=== PATIENT | female | born 1960 | race Caucasian/White ===

== ENCOUNTER 2022-11-02 11:37 | Emergency (ER) | payer BC, SELFPAY ==
[2022-11-02 11:46] VITALS: BP 138/78; PULSE 83; RESP 16; TEMP 36.6; O2SAT 98
--- NOTE | 2022-11-02 12:12 | ED.GENADULT ---
HPI - General Adult General Chief complaint: Neck Pain/Injury Stated complaint: Sore Throat/Neck Pain Time Seen by Provider: 11/02/22 12:12 Source: patient Mode of arrival: ambulatory Limitations: no limitations History of Present Illness HPI narrative: 62-year-old female presented for complaint of bilateral neck pain and sore throat for about one week. States she might have post nasal drainage, but denies sinus pressure/congestion, headache or cough. Took one Singulair. Endorses she had been sitting for about 2 days looking down at her phone. Denies arm numbness, tingling or weakness. denies injury or fall. Pain worse when turning head side to side. Related Data Home Medications Medication Instructions Recorded Confirmed No Home Medications 11/02/22 11/02/22 Allergies Allergy/AdvReac Type Severity Reaction Status Date / Time No Known Allergies Allergy Verified 11/02/22 12:10 Review of Systems Review of Systems: CONSTITUTIONAL: Denies body aches, fever, chills EYES: Denies visual changes CARDIOVASCULAR: Denies chest pain, palpitations, or edema. RESPIRATORY: Denies cough or dyspnea. GASTROINTESTINAL: Denies abdominal pain, nausea, vomiting, or diarrhea. SKIN: Denies rash, itching, or wounds. MUSCULOSKELETAL: reports neck pain NEUROLOGIC: Denies headache, numbness, tingling, or weakness. All systems reviewed & are unremarkable except as noted in HPI and below PMFSH Past Medical History Medical History (Updated 11/02/22 @ 12:25 by Gely Plata, DEANNA) No pertinent past medical history Comments At time of signature, I have reviewed and agree with nursing past medical, surgical, social and family history unless otherwise noted. Please see nursing chart for further information. There is no relevant family history pertinent to the presenting complaint Exam Narrative: GENERAL: Well-appearing, well-nourished, and in no acute distress. HEAD: Normocephalic, atraumatic. EYES: conjunctivae clear NECK: Supple. full ROM CHEST: Speaks in full sentences. No respiratory distress. HEART: Regular rate and rhythm. Normal and equal peripheral pulses. MUSC: No cervical vertebral point tenderness. BUEs with normal strength and sensation, normal range of motion but endorses pain with neck movement to bilateral trap/cervical area. No open wounds, or obvious deformity; alignment normal, pulse palpable and equal bilaterally, skin warm, dry, pink. Capillary refill less than 3 seconds. Gait steady. SKIN: Warm, dry, no rash. NEURO: Alert and oriented x3. Course Course Emergency Course: Patient is aware of diagnosis, understands and agrees to treatment plan. Anticipatory guidance given. Patient agrees to follow-up as directed and is aware of reasons to seek care at the emergency department. Portions of this record may have been created with voice recognition software Level of Care: Express Care Visit Vital Signs Vital signs: Vital Signs Temperature 98 F 11/02/22 11:46 Pulse Rate 83 11/02/22 11:46 Respiratory Rate 16 11/02/22 11:46 Blood Pressure 138/78 11/02/22 11:46 Pulse Oximetry 98 11/02/22 11:46 Oxygen Delivery Room Air 11/02/22 11:46 Temperature 98 F 11/02/22 11:46 Pulse Rate 83 11/02/22 11:46 Respiratory Rate 16 11/02/22 11:46 Blood Pressure 138/78 11/02/22 11:46 Pulse Oximetry 98 11/02/22 11:46 Oxygen Delivery Room Air 11/02/22 11:46 Reviewed Medical Decision Making MDM Narrative Medical decision making narrative: negative strep result reviewed with patient. Advised supportive measures and signs/symptoms to go to the ER. Pt is appropriate for outpt treatment and f/u. Differential Diagnosis Differential Diagnosis: Strep pharyngitis, cervical strain, viral infection Vital Signs Vital Signs: Vital Signs Temperature 98 F 11/02/22 11:46 Pulse Rate 83 11/02/22 11:46 Respiratory Rate 16 11/02/22 11:46 Blood Pressure 138/78 11/02/22 11:46
--- NOTE | 2022-11-02 14:03 | PC.NURSE ---
1220 on discharge pt aware of need and importance of strep culture, states she does not want culture done related to extra costs.
== END 2022-11-02 12:20 | disposition home or self-care (01) ==
PROVIDERS: Emergency Provider Nurse Practitioner Family; PCP Internal Medicine
DX: S16.1XXA Strain of muscle, fascia and tendon at neck level, initial encounter (principal); X58.XXXA Exposure to other specified factors, initial encounter
CPT/HCPCS: 87880; 99212; G0463